=== PATIENT | female | born 1990 | race Caucasian/White ===

== ENCOUNTER 2022-06-27 12:53 | Outpatient (CLI) | payer OTHER, SELFPAY ==
[2022-06-27 14:06] LABS: Basophils Absolute Auto 0.05 K/uL (0.00-0.30); Basophils Percent Auto 0.8 % (0.0-3.0); Eosinophils Percent Auto 10.4 % (0.0-7.0); Hematocrit 41.4 % (33.0-51.0); Hemoglobin* 13.5 gm/dL (12.0-16.0); Immature Granulocytes Abs Auto 0.01 K/uL (0.00-0.30); Immature Granulocytes Pct Auto 0.2 %; Lymphocytes Absolute Auto 2.23 K/uL (0.90-2.90); Lymphocytes Percent Auto 34.2 % (20-44); Mean Corpuscular HGB Conc 33 gm/dL (32-36); Mean Corpuscular Hemoglobin 31 pg (26-34); Mean Corpuscular Volume 95 fL (80-100); Monocytes Percent Auto 5.7 % (0.0-11.0); Neutrophils Absolute Auto 3.19 K/uL (1.7-7.0); Neutrophils Percent Auto 48.7 % (42.0-72.0); Platelet Count* 300 K/uL (140-440); RDW Coefficient of Variation % 12.6 % (11.5-15.5); Red Blood Count 4.35 m/uL (4.00-5.20); White Blood Count* 6.53 K/uL (4.50-11.00)
[2022-06-27 14:08] LABS: Slide Review Reflex No
[2022-06-27 14:30] LABS: Albumin* 4.6 g/dL (3.3-5.0); Chloride* 104 mmol/L (96-114); Sodium* 140 mmol/L (135-149)
[2022-06-27 14:32] LABS: Creatinine* 0.5 mg/dL (0.5-1.5); Estimated Glomerular Filt Rate 126 ml/min
[2022-06-27 14:33] LABS: Alanine Aminotransferase* 31 U/L (4-35); Alkaline Phosphatase* 63 U/L (40-150); Aspartate Amino Transferase* 36 U/L (12-35); Bilirubin Total* 0.5 mg/dL (0.1-1.5); Blood Urea Nitrogen* 7 mg/dL (5-24); Carbon Dioxide* 26 mmol/L (20-32); Glucose* 87 mg/dL (60-115); Lipase* 74 U/L (23-300); Potassium* 4.3 mmol/L (3.6-5.1); Total Protein* 7.3 g/dL (6.0-8.3)
[2022-06-27 14:34] LABS: Calcium* 9.5 mg/dL (8.4-10.6)
== END 2022-06-27 12:54 | disposition home or self-care (01) ==
PROVIDERS: PCP Family Medicine; Visit Provider Family Medicine
DX: R10.9 Unspecified abdominal pain (principal)
CPT/HCPCS: 80053; 83690; 84443; 85025

== ENCOUNTER 2022-10-05 07:05 | Outpatient (CLI) | payer OTHER, SELFPAY ==
--- NOTE | 2022-10-05 07:15 | MR_ITS ---
[facility] [address] [facility] [address] Phone:?[phone] Fax:?[phone] Referring Physician Information: Caleb Conley M.D. [address] [facility] [address] Phone:?[phone] Fax:?[phone] Patient:Keira Clay D.O.B:?1990 Sex:?Female Phone:?[phone] [facility] MRN:?[id number] Exam Date:?10/05/2022 ? EXAM: MRI EXAMINATION OF THE RIGHT KNEE CLINICAL INFORMATION: Right knee pain. Status post twisting injury. No history of surgery to this area. Feeling of instability. Evaluate meniscal tear. TECHNICAL INFORMATION: Axial PD and T2 fat saturation. Sagittal PD and PD fat saturation. Coronal PD and STIR images acquired. No prior studies for comparison. INTERPRETATION: Bones: No appreciable subchondral edema signal or cystic change. No evidence for an occult fracture, osseous contusion or stress reaction. No other abnormal bone marrow edema pattern is identified. Ligaments and tendons: The medial collateral ligament is intact, without acute sprain or tear. The iliotibial band, fibular collateral ligament, biceps femoris tendon and popliteus tendon all are intact. The anterior cruciate ligament is intact without acute sprain or tear. The posterior cruciate ligament is intact. Extensor Mechanism: The patellar and quadriceps tendons are intact. The medial and lateral retinacula are intact. Knee Joint: There is no knee joint effusion. No evidence for a popliteal cyst. No abnormal soft tissue fluid/edema signal to indicate MRI appearance for bursitis about the knee. There is no discrete loose body seen within the joint. Medial Compartment: There is no evidence for discrete medial meniscal tear. No displaced flap fragment or parameniscal cyst. There is no focal chondral defect. No other significant changes of chondromalacia. Lateral Compartment: There is no evidence for discrete lateral meniscal tear. No displaced flap fragment or parameniscal cyst. There is no focal chondral defect. No other significant changes of chondromalacia. Patellofemoral articulation: There is no focal chondral defect. No other significant chondromalacia. CONCLUSION: 1. There is no evidence for a meniscal tear. 2. The cruciate ligaments are intact. No other residua of a ligament injury involving the knee. 3. The articular cartilage is preserved. 4. No evidence for a knee joint effusion. No MRI evidence for bursitis about the knee. 5. No other internal derangement. KES Electronically signed on 10/05/2022 10:45:00 AM by Armen Hanley M.D.
== END 2022-10-05 07:06 | disposition home or self-care (01) ==
LOC: MRI 07:06
PROVIDERS: PCP Family Medicine; Visit Provider Family Medicine
DX: M25.561 Pain in right knee (principal)
CPT/HCPCS: 73721

== ENCOUNTER 2022-12-30 13:29 | Emergency (ER) | payer OTHER, SELFPAY ==
[2022-12-30 13:39] VITALS: BP 127/73; PULSE 115; RESP 18; TEMP 36.8; O2SAT 97; BMI 24.2
--- NOTE | 2022-12-30 13:58 | CRLHL7_ITS ---
For Patients: As a result of the Century Cures Act, medical imaging exams and procedure reports are released immediately into your electronic medical record. You may view this report before your referring provider. If you have questions, please contact your health care provider. Indication: Cough. Shortness of breath. Technique: Chest 2 views Comparison: None Findings: Cardiomediastinal silhouette is unremarkable. No focal lung consolidation, pleural effusion or pneumothorax. Bones are unremarkable. Metallic clips in the left breast. Impression: No acute cardiopulmonary abnormality. Dictated by Caleb Dubon MD @ 12/30/2022 3:11:49 PM (Electronically Signed)
--- NOTE | 2022-12-30 13:59 | ED_ITS ---
HPI - General Adult General Chief complaint: Shortness of Breath/Dyspnea Stated complaint: Trouble Breathing Time Seen by Provider: 12/30/22 13:31 History of Present Illness HPI narrative: This 32-year-old female comes in reporting a couple weeks of cough and upper respiratory symptoms that have worsened recently. She was seen in clinic 3 days ago and received a prescription for Augmentin. She has taken this medication but has not felt any better and states that she feels more short of breath. She also received a prescription for an inhaler. She does not report any fevers. She arrives with normal oximetry at 97% on room air but she is tachycardic. Related Data Home Medications Medication Instructions Recorded Confirmed buspirone 10 mg tablet 10 mg PO TID PRN 06/27/22 09/27/22 lidocaine 5 % topical patch 3 patch topical QDAY 09/27/22 09/27/22 naproxen 500 mg tablet 500 mg PO BID 09/27/22 09/27/22 Previous Rx's Medication Instructions Recorded ondansetron 8 mg disintegrating 8 mg PO Q8H PRN nausea and 06/27/22 tablet vomiting #20 tabs promethazine 25 mg tablet 25 mg PO Q6H PRN nausea and 07/06/22 vomiting #30 tabs omeprazole 40 mg capsule,delayed 40 mg PO QDAY #90 caps 11/01/22 release methylprednisolone 4 mg tablets in See Rx Instructions PO .COMPLEX 12/30/22 a dose pack (Medrol (Herrera)) #21 ea Allergies Allergy/AdvReac Type Severity Reaction Status Date / Time kiwi Allergy Unknown Unknown Verified 09/27/22 10:58 ciprofloxacin AdvReac Intermediate Verified 12/29/22 11:40 Review of Systems Status of ROS: Reports: 10 or more systems reviewed and unremarkable except as noted in History and below Narrative: Constitutional: No fevers, no weight gain or loss. Eyes: No discharge. No vision changes. HENT: No congestion, no sore throat, no ear pain. Cardiovascular: No chest pain, no palpitations. Respiratory: Cough and shortness of breath. Gastrointestinal: No abdominal pain, no vomiting, no diarrhea. Genitourinary: No dysuria, no hematuria. Musculoskeletal: Normal range of motion. Skin: No rashes, no pruritis. Neurological: No dizziness, weakness, sensory change, speech change. Endo/Heme/Allergies: No bruising or bleeding. No polydipsia. Pysch: no suicidality, no anxiety, no insomnia. All other systems reviewed and are negative. [facility] Medical History (Updated 12/30/22 @ 15:51 by Francisco Pelayo MD) GERD (gastroesophageal reflux disease) ?K21.9 - Gastro-esophageal reflux disease without esophagitis (ICD-10) Surgical History (Updated 12/11/22 @ 10:35 by Jessica De Los Santos ~ [facility], [facility]) History of breast biopsy ?Z98.890 - Other specified postprocedural states (ICD-10) History of tonsillectomy and adenoidectomy ?Z90.89 - Acquired absence of other organs (ICD-10) S/P colon polypectomy ?Z98.890 - Other specified postprocedural states (ICD-10) ?Z86.010 - Personal history of colonic polyps (ICD-10) Social History (Updated 10/02/22 @ 03:20 by Caleb Conley MD) Narrative: , morning [employer], non-smoker, [facility] patient Smoking Status: Never smoker Do you use any of these nicotine containing products: None Second hand tobacco smoke exposure: No How often do you have a drink containing alcohol: monthly or less AUDIT-C Alcohol total score: 1 Non-prescribed substance use: denies use Little interest or pleasure in doing things: several days Feeling down, depressed, or hopeless: not at all service: No Exam Narrative: Exam Narrative: Constitutional: Well-developed, well-nourished, no acute distress. HEENT: Normocephalic, atraumatic. Neck: Normal range of motion. Nontender. Supple. Heart: Regular. No murmurs. Normal rate. Intact distal pulses. Lungs: Clear to auscultation. No chest discomfort. No wheezes, rhonchi, or rales. Abdomen: Normal bowel sounds. Nontender. No rebound tenderness. Genitalia: Deferred. Back: No midline tenderness. Normal range of motion. Extremities: Normal range of motion. No injury. Skin: Intact. No rash. Warm. No erythema or pallor. Neurologic: No altered sensation. No weakness. Alert and oriented. Psychiatric: No suicidality. No anxiety or depression. No insomnia. Nursing notes and vitals signs are reviewed. Const: Vital Signs, click to edit/add: Vital Signs - 24 hr 12/30/22 13:39 Temperature 98.2 F Pulse Rate [Right Pulse Oximeter] 115 H Respiratory Rate 18 Blood Pressure [Ri ght Upper Arm] 127/73 Pulse Oximetry 97 Oxygen Delivery Me thod Room Air Course Vital Signs Vital signs: Initial Vital Signs Temperature 98.2 F 12/30/22 13:39 Temperature Source Temporal Artery Scan 12/30/22 13:39 Pulse Rate 115 H 12/30/22 13:39 Respiratory Rate 18 12/30/22 13:39 Blood Pressure 127/73 12/30/22 13:39 Blood Pressure Mean 91 12/30/22 13:39 Blood Pressure Position Sitting 12/30/22 13:39 Pulse Oximetry 97 12/30/22 13:39 Oxygen Delivery Method Room Air 12/30/22 13:39 Vital Signs Temperature 98.2 F 12/30/22 13:39 Pulse Rate 115 H 12/30/22 13:39 Respiratory Rate 18 12/30/22 13:39 Blood Pressure 127/73 12/30/22 13:39 Pulse Oximetry 97 12/30/22 13:39 Oxygen Delivery Method Room Air 12/30/22 13:39 Temperature 98.2 F 12/30/22 13:39 Pulse Rate 115 H 12/30/22 13:39 Respiratory Rate 18 12/30/22 13:39 Blood Pressure 127/73 12/30/22 13:39 Pulse Oximetry 97 12/30/22 13:39 Oxygen Delivery Method Room Air 12/30/22 13:39 Medical Decision Making MDM Narrative Medical decision making narrative: This patient comes in with upper respiratory symptoms and states that she feels like she is getting more short of breath. She is frequently coughing and it is usually nonproductive but at times there is greenish colored sputum. She has completed 3 days of Augmentin and states that it is causing significant diarrhea. She arrives here with normal vital signs except her heart rate is increased. She is maintaining sufficient oximetry on room air and is not using any accessory muscles for breathing. Her lungs sound clear bilaterally. I did do a chest x-ray which returns with no sign of acute pulmonary disease. Additionally nasal swab returns negative for COVID, influenza, and RSV. Most likely this is a is a viral infection. I did prescribe a Medrol Dosepak which may help her symptoms improve. Lab Data Labs: Lab Results 12/30/22 Range/Units 14:10 SARS-CoV-2 (PCR) Negative SARS-CoV-2 (Negative) Influenza Type A (PCR) Negative PCR FLU A (Negative) Influenza Type B (PCR) Negative PCR FLU B (Negative) RSV (PCR) Negative PCR RSV (Negative) Imaging Data Chest x-ray: Radiologist's impression: No acute cardiopulmonary abnormality. Discharge Plan Discharge Clinical Impression: Acute upper respiratory infection Patient Disposition: Home, Self-Care Condition: Unchanged Additional Instructions: Take medication as prescribed. Use [id number] medicines also as needed and directed. Follow up with MD or return if worsening. Prescriptions: New methylprednisolone [Medrol (Herrera)] 4 mg tablets,dose pack See Rx Instructions .ROUTE .COMPLEX Qty: 21 0RF Rx Instructions: orally per package directions No Action buspirone 10 mg tablet 10 mg PO TID PRN ondansetron 8 mg tablet,disintegrating 8 mg PO Q8H PRN (Reason: nausea and vomiting) Qty: 20 0RF naproxen 500 mg tablet 500 mg PO BID lidocaine 5 % adhesive patch,medicated 3 patch topical QDAY Rx Instructions: leave on most painful area for up to 12 hrs promethazine 25 mg tablet 25 mg PO Q6H PRN (Reason: nausea and vomiting) Qty: 30 2RF omeprazole 40 mg capsule,delayed release(DR/EC) 40 mg PO QDAY Qty: 90 0RF Follow Up/Referrals: Caleb Conley MD [Primary Care Provider] - Stand Alone Forms: [employer]th Info Instructions
[2022-12-30 14:58] LABS: PCR FLU A Negative PCR FLU A (Negative); PCR FLU B Negative PCR FLU B (Negative); PCR RSV Negative PCR RSV (Negative)
[2022-12-30 15:10] LABS: SARS PCR* Negative SARS-CoV-2 (Negative)
== END 2022-12-30 16:00 | disposition home or self-care (01) ==
PROVIDERS: Emergency Provider Emergency Medicine Emergency Medical Services; PCP Family Medicine
DX: J06.9 Acute upper respiratory infection, unspecified (principal)
CPT/HCPCS: 71046; 87631; 99283; 99284